=== PATIENT | female | born 1995 | race Caucasian/White ===

== ENCOUNTER 2018-10-12 00:56 | Emergency (ER) | payer OTHER ==
[~2018-10-12] VITALS: Ht 152.4 cm; Wt 81.7 kg
[~2018-10-12 00:56] MED LIST: APAP500 PO; DERMOPLAST SPRA56 ML; FLAGYL500 MG PO; IBUPROFEN 600600 M1 PO; TUCKS MEDICATE1 EAC1
[2018-10-12] MEDS ORDERED: BACTRIM DS TAB1 EACH PO (03:00)
[2018-10-12] MEDS ORDERED: TRAMADOL 50 MG50 MG PO (03:00)
[2018-10-12 04:07] VITALS: BP 119/73
== END 2018-10-12 04:08 | disposition home or self-care (01) ==
LOC: ER 00:56
DX: L02.411 Cutaneous abscess of right axilla (principal)

== ENCOUNTER 2018-10-16 19:08 | Emergency (ER) | payer OTHER ==
[~2018-10-16] VITALS: Ht 152.4 cm; Wt 81.7 kg
[~2018-10-16 19:08] MED LIST changes: +BACTRIM DS TAB1 EACH PO; +TRAMADOL 50 MG50 MG PO
[2018-10-16 19:39] VITALS: BP 130/78
== END 2018-10-16 19:40 | disposition home or self-care (01) ==
LOC: ER 19:08
DX: Z48.01 Encounter for change or removal of surgical wound dressing (principal); L02.411 Cutaneous abscess of right axilla

== ENCOUNTER 2018-11-28 19:44 | Emergency (ER) | payer OTHER ==
[~2018-11-28] VITALS: Ht 152.4 cm; Wt 81.7 kg
[2018-11-28] MEDS ORDERED: CLEOCIN HCL300 MG PO (20:20)
[2018-11-28 20:27] VITALS: BP 109/54
== END 2018-11-28 20:30 | disposition home or self-care (01) ==
LOC: ER 19:44
DX: O26.899 Other specified pregnancy related conditions, unspecified trimester (principal); L02.412 Cutaneous abscess of left axilla; Z98.890 Other specified postprocedural states; Z3A.00 Weeks of gestation of pregnancy not specified